=== PATIENT | male | born 2000 | race Two or more races ===

== ENCOUNTER 2022-02-09 16:21 | Emergency (ER) | payer OTHER ==
[2022-02-09] MEDS ORDERED: Ondansetron 4 MG/2 ML SDV IVPUSH ONE (19:58)
[2022-02-09] MEDS ORDERED: Sodium Chloride 0.9% 1,000 ML IV ONE (19:58)
[2022-02-09 20:28] LABS: CARBON DIOXIDE,CO2 24.5 mmol/L (21.0-32.0); POTASSIUM,K 3.3 mmol/L (3.5-5.1)
== END 2022-02-09 21:23 | disposition home or self-care (01) ==
LOC: MW.ED 16:21
DX: T67.2XXA Heat cramp, initial encounter (principal)
CPT/HCPCS: 36415; 80053; 82550; 85025; 96361; 96374; 99284; J2405; J7030; 99283